=== PATIENT | female | born 1975 | race Two or more races ===

== ENCOUNTER 2021-10-25 04:32 | Day surgery (SDC) | payer OTHER ==
[2021-10-24 11:57] VITALS: BMI 23.7
[2021-10-25 09:07] VITALS: TEMP 97.7
[2021-10-25 09:50] VITALS: BP 140/73; PULSE 68; RESP 17
== END 2021-10-25 10:57 | disposition home or self-care (01) ==
LOC: JASU-ENDO 04:32
PROVIDERS: ATTEND Internal Medicine Gastroenterology
PROC: 0DBH8ZX Excision of Cecum, Via Natural or Artificial Opening Endoscopic, Diagnostic (ICD-10-PCS; 2021-10-25)
PROC: 0DBL8ZX Excision of Transverse Colon, Via Natural or Artificial Opening Endoscopic, Diagnostic (ICD-10-PCS; principal; 2021-10-25 10:30)
DX: Z12.11 Encounter for screening for malignant neoplasm of colon (principal); Z80.0 Family history of malignant neoplasm of digestive organs; D12.3 Benign neoplasm of transverse colon
CPT/HCPCS: 88305-TC